=== PATIENT | male | born 1945 | race African-American/Black ===

== ENCOUNTER 2017-11-02 10:21 | Day surgery (SDC) | payer MEDICARE, OTHER ==
[~2017-11-02] VITALS: Ht 180.3 cm; Wt 72.7 kg
[2017-11-02] MEDS ORDERED: PROPOFOL 1% 20 ML VIAL IVP ONE (10:22)
[2017-11-02] MEDS ORDERED: FentaNYL CITRATE-PF 100 MCG/2 ML VIAL IVP ONE (10:22)
[2017-11-02] MEDS ORDERED: MIDAZOLAM HCL 2 MG/2 ML VIAL IVP ONE (10:22)
[2017-11-02] MEDS ORDERED: SUCCINYLCHOLINE CHLORIDE 20 MG/ML 10 ML VIAL IVP ONE (10:22)
[2017-11-02] MEDS ORDERED: LIDOCAINE HCL/PF 2% 5 ML VIAL INJ ONE (10:22)
[2017-11-02] MEDS ORDERED: RINGERS SOLUTION,LACTATED 1,000 ML IV ONE ×2 (10:25→11:00)
[2017-11-02] MEDS ORDERED: NIFE30TA5 PO (10:59)
[2017-11-02] MEDS ORDERED: BUPIVACAINE HCL/PF 0.5% 30 ML VIAL ONE (11:38)
[2017-11-02] MEDS ORDERED: LIDOCAINE HCL/PF 2% 5 ML VIAL ONE (11:40)
[2017-11-02] MEDS ORDERED: FentaNYL CITRATE-PF 100 MCG/2 ML VIAL IVP PRN (13:45)
[2017-11-02] MEDS ORDERED: MEPERIDINE-PF 25 MG/ML SYRINGE IVP PRN (13:45)
[2017-11-02] MEDS ORDERED: POVIDONE-IODINE 30 GM OINTMENT TP ONE (13:56)
== END 2017-11-02 15:30 | disposition home or self-care (01) ==
LOC: SURGERY 10:21
DX: M72.2 Plantar fascial fibromatosis (principal); I11.9 Hypertensive heart disease without heart failure; Z98.890 Other specified postprocedural states; Z88.6 Allergy status to analgesic agent; Z79.899 Other long term (current) drug therapy
CPT/HCPCS: 28039; 88304; J0330; J0690; J2250; J2704; J3010; J3490 ×2; J7120